=== PATIENT | male | born 1955 | race Hispanic/Latino ===

== ENCOUNTER 2018-08-05 16:44 | Inpatient (IN) | payer OTHER ==
[~2018-08-05] VITALS: Ht 170.2 cm; Wt 81.2 kg
[2018-08-05] MEDS ORDERED: MORPHINE SULFATE 2 MG/ML SYR IV NR ×2 (17:00→18:45)
[2018-08-05] MEDS ORDERED: ONDANSETRON HCL INJ 2 MG/ML VIAL IV NR (17:15)
[2018-08-05 17:31] LABS: CLARITY,URINE TURBID (CLEAR); COLOR,URINE RED (YELLOW); LEUKOCYTE ESTERASE ,URINE NEGATIVE (NEGATIVE)
[2018-08-05 17:32] LABS: KETONES,URINE TRACE (NEGATIVE); NITRITE,URINE POSITIVE (NEGATIVE); PROTEIN,URINE DIPSTICK 2+ (NEGATIVE)
[2018-08-05 17:35] LABS: BILIRUBIN,URINE 2+ (NEGATIVE); URINE UROBILINOGEN 4 mg/dL (0.2 - 1)
[2018-08-05 17:50] LABS: BASOPHILS # (AUTO) 0.1 (0.0-0.1); BASOPHILS % 0.4 % (0.0-1.0); HEMATOCRIT 43.8 % (38.2-49.6); HEMOGLOBIN 14.7 g/dL (14.0-18.0); LYMPHOCYTES # (AUTO) 0.8 (1.0-3.2); LYMPHOCYTES % 5.7 % (18.0-39.1); MEAN CORPUSCULAR HEMOGLOBIN 31.1 pg (28-32); MEAN CORPUSCULAR HGB CONC 33.6 g/dL (31-35); MEAN CORPUSCULAR VOLUME 92.8 fL (81-99); MONOCYTES # (AUTO) 0.5 (0.2-0.8); NEUTROPHILS # (AUTO) 11.9 (2.1-6.9); NEUTROPHILS % 89.6 % (38.7-80.0); PLATELET COUNT 242 x10e3/uL (140-360); RED BLOOD COUNT 4.72 x10e6/uL (4.3-5.7); RED CELL DISTRIBUTION WIDTH 13.1 % (11.7-14.4)
[2018-08-05 17:56] LABS: AMORPHOUS SEDIMENT,URINE FEW (FEW); BACTERIA,URINE MODERATE /HPF; EPITHELIAL CELLS,URINE FEW /LPF; RBC,URINE >50 /HPF (0-5); WBC,URINE (MAN) 0-5 /HPF (0-5)
[2018-08-05] MEDS ORDERED: CEFTRIAXONE SOD 1 GM VIAL IV NR (18:00)
[2018-08-05 18:04] LABS: ALANINE AMINOTRANSFERASE 19 IU/L (0-55); ALBUMIN 4.3 g/dL (3.5-5.0); ALBUMIN/GLOBULIN RATIO 1.4 (0.8-2.0); ALKALINE PHOSPHATASE 82 IU/L (40-150); ANION GAP 13.8 mmol/L (8-16); BLOOD UREA NITROGEN 13 mg/dL (7-26); BUN/CREATININE RATIO 11 (6-25); CALCIUM 9.6 mg/dL (8.4-10.2); CARBON DIOXIDE 25 mmol/L (22-29); CHLORIDE 104 mmol/L (98-107); CREATININE, SERUM 1.19 mg/dL (0.72-1.25); EST GLOMERULAR FILTRATION RATE > 60 ML/MIN (60-); GLUCOSE 169 mg/dL (74-118); POTASSIUM 3.8 mmol/L (3.5-5.1); SODIUM 139 mmol/L (136-145)
--- NOTE | 2018-08-05 18:28 | Diagnostic Imaging Report ---
EXAM: CT Abdomen and Pelvis WITHOUT contrast INDICATION: Flank pain, urinary frequency, fullness ^Stone Protocol ^[id number] ^1755 ^Y COMPARISON: None. TECHNIQUE: Abdomen and pelvis were scanned utilizing a multidetector helical scanner from the lung base to the pubic symphysis without administration of IV contrast. Absence of intravenous contrast decreases sensitivity for detection of focal lesions and vascular pathology. Coronal and sagittal reformations were obtained. Routine protocol was performed. IV CONTRAST: None ORAL CONTRAST: Water COMPLICATIONS: None RADIATION DOSE: Total DLP: 326.7 mGy*cm Estimated effective dose: (DLP x 0.015 x size factor) mSv CTDIvol has been reviewed. It is below the limits set by the Radiation Protocol Committee (RPC). Dose modulation, iterative reconstruction, and/or weight based adjustment of the mA/kV was utilized to reduce the radiation dose to as low as reasonably achievable. FINDINGS: LINES and TUBES: None. LOWER THORAX: Coronary artery calcifications. Mild bibasilar atelectasis. HEPATOBILIARY: Hepatic cysts measuring up to 2.4 cm. Smaller hypodensities are too small to characterize but likely represent cysts. No biliary ductal dilation. GALLBLADDER: No radio-opaque stones or sludge. No wall thickening. SPLEEN: No splenomegaly. PANCREAS: No focal masses or ductal dilatation. ADRENALS: No adrenal nodules KIDNEYS/URETERS: Mild right hydroureteronephrosis secondary to a 0.2 x 0.5 x 0.3 cm (SI x AP x TV) stone at the ureterovesicular junction. Associated perinephric and periureteral stranding. Punctate nonobstructing calculus in the left superior pole. No left hydronephrosis. GI TRACT: No abnormal distention, wall thickening, or evidence of bowel obstruction. There are diverticula within the colon without evidence of diverticulitis. Submucosal fat deposition in the ascending colon. Appendix is not clearly identified. There is however no fat stranding or adenopathy in the right lower quadrant to suggest appendicitis. PELVIC ORGANS/BLADDER: Unremarkable. LYMPH NODES: No lymphadenopathy. VESSELS: There is mild atherosclerotic disease in the aorta and major arterial branches. PERITONEUM / RETROPERITONEUM: No free air or fluid. BONES: There are degenerative changes in the lumbar spine. SOFT TISSUES: Fat-containing right inguinal hernia. IMPRESSION: 1. Mild right hydroureteronephrosis secondary to a 0.2 x 0.5 x 0.3 cm stone at the right ureterovesicular junction. 2. Left nephrolithiasis. No left hydronephrosis. 3. Colonic diverticulosis. Signed by: DR. Sandip Lozano MD on 08/05/2018 6:25 PM
--- OUTSIDE RECORDS SUMMARY | 2018-08-05 18:59 | XMS REPORT ---
Author Author [facility] Address Unknown Phone Unavailable Care Team Providers Care Tonnage Compilation Clerk Name Role Phone Doreen GASTON Unavailable Unavailable Problems This patient has no known problems. Allergies, Adverse Reactions, Alerts This patient has no known allergies or adverse reactions. Medications This patient has no known medications. Encounters Start Date/Time End Date/Time Encounter Type Admission Type Attending [facility] Care Department Encounter ID 2018-03-15 00:00:00 2018-03-15 00:00:00 Outpatient [facility] [id number] 2018-01-09 00:00:00 2018-01-09 00:00:00 Outpatient [facility] [id number] 2017-08-28 00:00:00 2017-08-28 00:00:00 Outpatient [facility] [id number] 2017-07-12 08:56:36 2017-07-12 08:56:36 Outpatient [facility] [id number] 2017-07-12 08:03:46 2017-07-12 08:03:46 Outpatient [facility] [id number] 2017-07-11 09:05:43 2017-07-11 09:05:43 Outpatient [facility] [id number] Results Test Description Test Time Test Comments Text Results Atomic Results Result Comments CT ABDOMEN/PELVIS WO 2018-08-05 18:17:00 [place] [address] Patient Name: LAI WALDRON MR #: [id number] : 1955 Age/Sex: 63/M Req #: [id number] Adm Physician: Ordered by: JOSUE GASTON MD Report #: [id number] Location: ER Room/Bed: Procedure: [id number] CT/CT ABDOMEN/PELVIS WO Exam Date: 08/05/18 Exam Time: 1755 REPORT STATUS: Signed EXAM: CT Abdomen and Pelvis WITHOUT contrast INDIC ATION: Flank pain, urinary frequency, fullness Stone Protocol [id number] 1755 Y COMPARISON: None. TECHNIQUE: Abdomen and pelvis were scanned utilizing a multidetector helical scanner from the lung base to the pubic symphysis without administration of IV contrast. Absence of intravenous contrast decreases sensitivity for detection of focal lesions and vascular pathology. Coronal and sagittal reformations were obtained. Routine protocol was performed. IV CONTRAST: None ORAL CONTRAST: Water COMPLICATIONS: None RADIATION DOSE: Total DLP: 326.7 mGy*cm Estimated effective dose: (DLP x 0.015 x size factor) mSv CTDIvol has been reviewed. It is below the limits set by the Radiation Protocol Committee (RPC). Dose modulation, iterative reconstruction, and/or weight based adjustment of the mA/kV was utilized to reduce the radiation dose to as low as reasonably achievable. FINDINGS: LINES and TUBES: None. LOWER THORAX: Coronary artery calcifications. Mild bibasilar atelectasis. HEPATOBILIARY: Hepatic cysts measuring up to 2.4 cm. Smaller hypodensities are too small to characterize but likely represent cysts. No biliary ductal dilation. GALLBLADDER: No radio-opaque stones or sludge. No wall thickening. SPLEEN: No splenomegaly. PANCREAS: No focal masses or ductal dilatation. ADRENALS: No adrenal nodules KIDNEYS/URETERS: Mild right hydroureteronephrosis secondary to a 0.2 x 0.5 x 0.3 cm (SI x AP x TV) stone at the ureterovesicular junction. Associated perinephric and periureteral stranding. Punctate nonobstructing calculus in the left superior pole. No left hydronephrosis. GI TRACT: No abnormal distention, wall thickening, or evidence of bowel obstruction. There are diverticula within the colon without evidence of diverticulitis. Submucosal fat deposition in the ascending colon. Appendix is not clearly identified. There is however no fat stranding or adenopathy in the right lower quadrant to suggest appendicitis. PELVIC ORGANS/BLADDER: Unremarkable. LYMPH NODES: No lymphadenopathy. VESSELS: There is mild atherosclerotic disease in the aorta and major arterial branches. PERITONEUM / RETROPERITONEUM: No free air or fluid. BONES: There are degenerative changes in the lumbar spine. SOFT TISSUES: Fat-containing right inguinal hernia. IMPRESSION: 1. Mild right hydroureteronephrosis secondary to a 0.2 x 0.5 x 0.3 cm stone at the right ureterovesicular junction. 2. Left nephr olithiasis. No left hydronephrosis. 3. Colonic diverticulosis. Signed by: DR. Sandip Laureano MD on 08/05/2018 6:25 PM Dictated By: SANDIP LAUREANO MD 24 Transcribed By: FARHAN on 08/05/181824 COPY TO: JOSUE GASTON MD
[2018-08-05] MEDS ORDERED: MORPHINE SULFATE 2 MG/ML SYR IV PRN (19:00)
[2018-08-05] MEDS ORDERED: ACETAMINOPHEN 325 MG TAB PO PRN (19:00)
[2018-08-05] MEDS ORDERED: IBUPROFEN 600 MG TAB PO PRN (19:00)
[2018-08-05] MEDS ORDERED: ONDANSETRON HCL INJ 2 MG/ML VIAL IV PRN (19:00)
[2018-08-05] MEDS ORDERED: DEXTROSE 50% SYRINGE 50 ML IV PRN (19:00)
[2018-08-05] MEDS ORDERED: CEFTRIAXONE SOD 1 GM VIAL IV SCH (19:15)
[2018-08-05] MEDS ORDERED: KETOROLAC TROMETHAMINE 30 MG/ML VIAL IV NR (19:30)
[2018-08-05 20:00] VITALS: BP 108/68
[2018-08-05 20:36] VITALS: BP 138/62
[2018-08-05 21:00] VITALS: BP 138/62
[2018-08-05] MEDS: INSULIN REGULAR, HUMAN 100 UNIT/1 ML 3ML VIAL SQ SCH (21:00)
[2018-08-05] MEDS: SODIUM CHLORIDE 0.9% 1000ML 1,000 ML IV SCH (21:47)
[2018-08-06] VITALS (7 sets, daily range): BP systolic 110–136; BP diastolic 57–73
[2018-08-06] MEDS: SODIUM CHLORIDE 0.9% 1000ML 1,000 ML IV SCH ×3 (02:46→23:43)
[2018-08-06] MEDS: INSULIN REGULAR, HUMAN 100 UNIT/1 ML 3ML VIAL SQ SCH ×4 (07:30→20:44)
[2018-08-06] MEDS ORDERED: ATORVASTATIN CA20 MG PO (07:35)
[2018-08-06] MEDS ORDERED: METOPROLOL SUCC50 MG PO (07:35)
[2018-08-06] MEDS: ATORVASTATIN 20 MG TAB PO SCH (09:10)
[2018-08-06] MEDS: METOPROLOL SUCCINATE 50 MG TAB XL PO SCH (09:10)
[2018-08-06] MEDS: CEFTRIAXONE SOD 1 GM VIAL IV SCH (17:20)
[2018-08-06] MEDS ORDERED: CEFTRIAXONE SOD 1 GM VIAL IV SCH ×2 (19:30)
--- NOTE | 2018-08-06 21:35 | Consultation ---
DATE OF CONSULTATION: August 06, 2018 UROLOGY CONSULTATION REASON FOR CONSULTATION: Kidney stones. HISTORY OF PRESENT ILLNESS: Mr. Wilks is a 63-year-old male, who is in normal state of health with acute, sharp, severe, right-sided flank pain while in the hospital. He denied fevers. No chills. Denied nausea and vomiting. PAST MEDICAL HISTORY: Hypertension, appendectomy. MEDICATIONS: Metoprolol, lovastatin. ALLERGIES: NKDA. SOCIAL HISTORY: Denied smoking or drinking. FAMILY HISTORY: Denied urologic stones or malignancies. REVIEW OF SYSTEMS: Noncontributory other than problems mentioned above for 12 organ systems. PHYSICAL EXAMINATION GENERAL: Elderly male. No acute distress. VITALS: Temperature currently he is afebrile. Blood pressure 203/104. Pulse 61. Respirations 16. HEENT: The sclerae are anicteric. NECK: Supple. BACK: Without costovertebral angle tenderness bilaterally. ABDOMEN: Soft, nontender, nondistended. There is no palpable mass. No palpable hernias. No palpable inguinal adenopathy. : Normal male external genitalia. EXTREMITIES: No edema. PSYCH: Alert, mood appropriate. SKIN: Intact. Normal color. PERTINENT LABORATORY DATA: CT scan revealing a 2- x 3- x 5-mm right UPJ stone right hydronephrosis, left lower pole punctate stone, liver cysts. Hemoglobin 14, hematocrit 43, platelet count 242,000, white cell count 13,240. Sodium 139, potassium 3.0, chloride 104, bicarb 25, BUN 30, creatinine 1.19, glucose 169. Urinalysis greater 50 reds, 0 to 5 whites, 4+ bilirubin, 2+ glucose, 2+ protein. IMPRESSIONS 1. Right renal calculus. 2. Right hydronephrosis. 3. Microscopic hematuria. 4. Left renal calculus. 5. Proteinuria. 6. Glycosuria. PLAN: Will employ a brief trial of passage. Should this fail, patient will need stenting. Thank you for allowing us to participate in care of your patient. Will be happy to follow him along with you. Job#: [id number]
[2018-08-07] VITALS (7 sets, daily range): BP systolic 115–155; BP diastolic 60–83
[2018-08-07 04:32] LABS: BASOPHILS # (AUTO) 0.1 (0.0-0.1); BASOPHILS % 0.5 % (0.0-1.0); EOSINOPHILS # (AUTO) 0.2 (0.0-0.4); EOSINOPHILS % 1.7 % (0.0-6.0); HEMATOCRIT 37.1 % (38.2-49.6); HEMOGLOBIN 12.4 g/dL (14.0-18.0); LYMPHOCYTES # (AUTO) 2.3 (1.0-3.2); LYMPHOCYTES % 22.9 % (18.0-39.1); MEAN CORPUSCULAR HEMOGLOBIN 31.2 pg (28-32); MEAN CORPUSCULAR HGB CONC 33.4 g/dL (31-35); MEAN CORPUSCULAR VOLUME 93.2 fL (81-99); MONOCYTES % 9.6 % (4.4-11.3); NEUTROPHILS # (AUTO) 6.5 (2.1-6.9); PLATELET COUNT 191 x10e3/uL (140-360); RED BLOOD COUNT 3.98 x10e6/uL (4.3-5.7); RED CELL DISTRIBUTION WIDTH 13.2 % (11.7-14.4)
[2018-08-07 04:58] LABS: ALANINE AMINOTRANSFERASE 12 IU/L (0-55); ALBUMIN/GLOBULIN RATIO 1.2 (0.8-2.0); ALKALINE PHOSPHATASE 61 IU/L (40-150); ANION GAP 12.5 mmol/L (8-16); BLOOD UREA NITROGEN 16 mg/dL (7-26); BUN/CREATININE RATIO 17 (6-25); CALCIUM 8.5 mg/dL (8.4-10.2); CARBON DIOXIDE 23 mmol/L (22-29); CHLORIDE 110 mmol/L (98-107); CREATININE, SERUM 0.96 mg/dL (0.72-1.25); EST GLOMERULAR FILTRATION RATE > 60 ML/MIN (60-); GLUCOSE 92 mg/dL (74-118); POTASSIUM 3.5 mmol/L (3.5-5.1); SODIUM 142 mmol/L (136-145)
[2018-08-07 06:24] LABS: CHOL/HDL RATIO 2.9 (3.9-4.7)
--- NOTE | 2018-08-07 06:27 | History and Physical ---
PRIMARY CARE PHYSICIAN: Dr. Oleary CHIEF COMPLAINT: Right flank pain. HISTORY OF PRESENT ILLNESS: This is a 63-year-old man with a history of coronary artery disease, now developing right flank pain for the past 2 days. No fever or chills. No sweats. Did have some nausea and vomiting, but no diarrhea. Admitted for further evaluation and management. PAST MEDICAL HISTORY: Coronary artery disease, status post stent times 2 in 2015 and hypertension. PAST SURGICAL HISTORY: Coronary stent placement and appendectomy. ALLERGIES: PER ELECTRONIC MEDICAL RECORD. FAMILY HISTORY/SOCIAL HISTORY: Patient is and has 3 children. No alcohol or illicits. He works as a operations welder. MEDICATIONS: Per electronic medical record. REVIEW OF SYSTEMS: Denies any dizziness or chest pain. Denies any fever, chills, sweats. Denies any headache, vision changes or leg pain. PHYSICAL EXAMINATION VITAL SIGNS: Have been reviewed. GENERAL: A tired-appearing man resting in bed. HEENT: Anicteric. Pupils respond to light. No oral lesions. CARDIOVASCULAR: Normal S1 and S2. LUNGS: Moderate breath sounds. ABDOMEN: Soft, nontender and nondistended. His right flank is mildly tender to percussion. EXTREMITIES: No edema. SKIN: Dry. PSYCHIATRIC: Normal affect. NEUROLOGICAL: Alert and oriented times 3. Moving all extremities. LABS: Reviewed. MEDICATIONS: Reviewed. ASSESSMENT: A 63-year-old man with: 1. Right pyelonephritis. 2. Right hydroureteronephrosis. 3. Nephrolithiasis. 4. Urinary tract infection. 5. Hyperglycemia. 6. Hyperlipidemia. 7. Hypertension. PLAN 1. IV antibiotics and IV fluids. 2. Urology consultation. 3. Follow up cultures. 4. Continue IV ceftriaxone. 5. Continue statin medications and check lipid panel. 6. Screen for diabetes. 7. Prophylaxis with SCD. 8. Disposition. I have discussed with the patient and family at bedside. Job#: [id number] OR
[2018-08-07] MEDS: METOPROLOL SUCCINATE 50 MG TAB XL PO SCH (08:48)
[2018-08-07] MEDS: SODIUM CHLORIDE 0.9% 1000ML 1,000 ML IV SCH ×3 (08:48→20:27)
[2018-08-07] MEDS: ATORVASTATIN 20 MG TAB PO SCH (08:48)
--- NOTE | 2018-08-07 13:07 | Diagnostic Imaging Report ---
PROCEDURE:X-RAY ABDOMEN - KUB COMPARISON:CT scan of the abdomen and pelvis dated 08/05/2018 INDICATIONS:KIDNEY STONES FINDINGS: Faint calcification overlying the expected right ureterovesical junction likely represents a previously described stone in the distal right ureter from the recent CT. Calcification overlying the medial aspect of the left kidney is indeterminate. There are no dilated loops of bowel to suggest obstruction. There are no masses. There is no evidence of free air. No acute osseous abnormalities are present. CONCLUSION: 1. No acute abdominal abnormality. 2. Calcification persistent at the expected course of the right UVJ. Yusuf Mackey D.O. Dictated by: Yusuf Mackey D.O. on 08/07/2018 at 13:16 Electronically approved by: Yusuf Mackey D.O. on 08/07/2018 at 13:16
[2018-08-07] MEDS: CEFTRIAXONE SOD 1 GM VIAL IV SCH (16:30)
[2018-08-08] VITALS: BP 153/84
[2018-08-08 04:00] VITALS: BP 133/81
[2018-08-08 04:39] LABS: BASOPHILS # (AUTO) 0.1 (0.0-0.1); BASOPHILS % 0.9 % (0.0-1.0); EOSINOPHILS # (AUTO) 0.2 (0.0-0.4); EOSINOPHILS % 2.2 % (0.0-6.0); HEMATOCRIT 37.3 % (38.2-49.6); HEMOGLOBIN 12.7 g/dL (14.0-18.0); LYMPHOCYTES # (AUTO) 2.7 (1.0-3.2); LYMPHOCYTES % 33.4 % (18.0-39.1); MEAN CORPUSCULAR HEMOGLOBIN 31.4 pg (28-32); MEAN CORPUSCULAR VOLUME 92.1 fL (81-99); MONOCYTES # (AUTO) 0.8 (0.2-0.8); MONOCYTES % 9.6 % (4.4-11.3); NEUTROPHILS # (AUTO) 4.3 (2.1-6.9); NEUTROPHILS % 53.7 % (38.7-80.0); PLATELET COUNT 200 x10e3/uL (140-360); RED BLOOD COUNT 4.05 x10e6/uL (4.3-5.7); RED CELL DISTRIBUTION WIDTH 13.1 % (11.7-14.4)
[2018-08-08 04:58] LABS: ANION GAP 13.3 mmol/L (8-16); BLOOD UREA NITROGEN 11 mg/dL (7-26); BUN/CREATININE RATIO 15 (6-25); CALCIUM 8.9 mg/dL (8.4-10.2); CARBON DIOXIDE 23 mmol/L (22-29); CHLORIDE 107 mmol/L (98-107); CREATININE, SERUM 0.75 mg/dL (0.72-1.25); EST GLOMERULAR FILTRATION RATE > 60 ML/MIN (60-); GLUCOSE 89 mg/dL (74-118); POTASSIUM 3.3 mmol/L (3.5-5.1); SODIUM 140 mmol/L (136-145)
[2018-08-08] MEDS: SODIUM CHLORIDE 0.9% 1000ML 1,000 ML IV SCH ×2 (05:36→10:46)
[2018-08-08] MEDS ORDERED: MORPHINE SULFATE INJ 4 MG/ML INJ IV PRN (06:45)
[2018-08-08] MEDS ORDERED: POTASSIUM CHLORIDE 20 MEQ TAB CR PO ONE (06:55)
[2018-08-08 07:51] VITALS: BP 133/81
[2018-08-08] MEDS ORDERED: POTASSIUM CHLORIDE 20MEQ/100ML 100 ML IV ONE (08:00)
[2018-08-08 08:45] VITALS: BP 139/83
[2018-08-08] MEDS: METOPROLOL SUCCINATE 50 MG TAB XL PO SCH (08:57)
[2018-08-08] MEDS: ATORVASTATIN 20 MG TAB PO SCH (08:57)
[2018-08-08 11:32] VITALS: BP 126/84
[2018-08-08] MEDS ORDERED: BELLADONNA/OPIUM 60 MG SUPP PR ONE (12:32)
[2018-08-08] MEDS ORDERED: IOPAMIDOL 610MG/1ML 300 MG/ML VIAL IV ONE (12:32)
[2018-08-08] MEDS ORDERED: TAMSULOSIN HCL 0.4 MG CAP PO SCH (13:30)
[2018-08-08] MEDS ORDERED: ACETAMINOPHEN/CODEINE 300MG - 30MG TAB PO PRN (13:30)
[2018-08-08 16:32] VITALS: BP 147/70
[2018-08-08] MEDS ORDERED: OXYBUTYNIN CHLORIDE 5 MG TAB PO SCH (17:00)
[2018-08-08] MEDS ORDERED: PHENAZOPYRIDINE HCL 100 MG TAB PO SCH (18:00)
[2018-08-08] MEDS ORDERED: TYLENOL # 31 EA (18:33)
[2018-08-08] MEDS ORDERED: DITROPAN XL5 MG PO (18:33)
[2018-08-08] MEDS ORDERED: FLOMAX0.4 MG PO (18:34)
[2018-08-08] MEDS ORDERED: CEFUROXIME500 MG (18:34)
[2018-08-08] MEDS ORDERED: FENTANYL CITRATE/PF 100MCG/2 ML INJ ONE (19:18)
[2018-08-08] MEDS ORDERED: MIDAZOLAM HCL 2 MG/2 ML VIAL ONE (19:18)
[2018-08-08] MEDS ORDERED: LIDOCAINE HCL 2% LOCAL INJ 5 ML SDV VIAL INJ ONE (19:18)
[2018-08-08] MEDS ORDERED: DEXAMETHASONE SOD PHOS INJ 4 MG/ML VIAL ONE (19:18)
[2018-08-08] MEDS ORDERED: SEVOFLURANE INHAL SOLN 250 ML PEN BTL ONE (19:18)
[2018-08-08] MEDS ORDERED: ONDANSETRON HCL INJ 2 MG/ML VIAL ONE (19:18)
[2018-08-08] MEDS ORDERED: PROPOFOL IV EMULSION 10 MG/ML 20 ML VIAL ONE (19:18)
--- NOTE | 2018-09-10 05:53 | Operative Report ---
DATE OF PROCEDURE: August 08, 2018 PREOPERATIVE DIAGNOSES 1. Right ureteral stone. 2. Right hydronephrosis due to stone. 3. Microhematuria. POSTOPERATIVE DIAGNOSES 1. Right ureteral stone. 2. Right hydronephrosis due to stone. 3. Microhematuria. OPERATIONS PERFORMED 1. Cystourethroscopy with bilateral ureteral catheterization and retrograde ureteropyelography (separate procedure performed for the microhematuria). 2. Interpretation of retrograde ureteropyelography. 3. Right ureteroscopy (separate procedure performed for the ureterolithiasis). 4. Right radiological services for supervision and interpretation of ureteroscopy. 5. Cystourethroscopy with insertion of right indwelling ureteral stent (separate procedure performed for the hydronephrosis). ANESTHESIA: General. COMPLICATIONS: None. CLINICAL SUMMARY: Please refer to consultation during this hospitalization, as well as documentation in the chart. OPERATIVE PROCEDURE IN DETAIL: Informed consent was verified. Maty Wilks was properly identified and taken to the operating room and placed on the cystoscopy table in the supine position. Anesthesia was uneventfully begun. The patient was then carefully and gently repositioned in the dorsal lithotomy position with all pressure points well-padded. His genitalia were prepared and draped in the usual sterile fashion. A 22.5-Eritrean cystoscope sheath with visual obturator in place was atraumatically inserted into the patient's urethra. It was guided down an unremarkable urethra through the normal sphincteric region, through the prostate bed, which was significant for trilobar prostatic hypertrophy with kissing lateral lobes and an prominent intravesical median lobe. Panendoscopy revealed grade 2 trabeculations, but no tumors. No stones and no diverticula. Normally positioned and configured ureteral orifices were identified. An 8-Eritrean catheter was used to cannulate each ureter and retrograde ureteropyelographies were performed. A guidewire was then placed into the right ureter and guided to the level to the patient's kidney. Semi-rigid ureteroscope was then placed alongside the guidewire and guided into the distal ureter. We could not identify any stone at this time. With cystoscopic and fluoroscopic guidance, a right-sided indwelling ureteral stent was then placed. It was coiled in the patient's kidneys, as well as in the patient's bladder. The retaining suture was cut short. Interpretation of retrograde ureteropyelography. Contrast was instilled in a retrograde fashion bilaterally. The left side was unremarkable. There were no tumors. No stones and no diverticula. Unobstructed drainage was observed. I could not visualize the punctate left-sided stone noted on CT. On the right side, there was hydroureteronephrosis compared to the left side. I could not visualize a filling defect that corresponds to the stone on CT. The stent was in good position, coiled in the patient's kidney, as well as the patient's bladder at the end of the case. The patient's bladder was drained. Cystoscope was withdrawn. Digital rectal examination revealed a 40 g prostate, smooth, nonfluctuant and without any nodules. Patient was then uneventfully reversed from anesthesia and taken to the recovery room in stable condition. Explicit postoperative instructions were given. I prescribed Flomax in addition to p.r.n. medications. Will plan to return the patient to the operating room for removal of the stents and perform a right ureteroscopy and manage any stone should we be able to find it. Job#: [id number] DINO
== END 2018-08-08 18:51 | disposition home or self-care (01) | DRG 661 ==
LOC: ER 16:44 → ERHOLD 18:57 → MED/SURG2 19:58
PROVIDERS: ADMIT Internal Medicine; ATTEND Internal Medicine
PROC: BT141ZZ Fluoroscopy of Kidneys, Ureters and Bladder using Low Osmolar Contrast (ICD-10-PCS; 2018-08-08)
PROC: 0T768DZ Dilation of Right Ureter with Intraluminal Device, Via Natural or Artificial Opening Endoscopic (ICD-10-PCS; principal; 2018-08-08 13:30)
DX: N13.6 Pyonephrosis (principal); I10 Essential (primary) hypertension; Z82.49 Family history of ischemic heart disease and other diseases of the circulatory system; I25.10 Atherosclerotic heart disease of native coronary artery without angina pectoris; Z95.5 Presence of coronary angioplasty implant and graft; R73.9 Hyperglycemia, unspecified; E78.5 Hyperlipidemia, unspecified; R80.9 Proteinuria, unspecified; R81 Glycosuria; D64.9 Anemia, unspecified; R31.29 Other microscopic hematuria
CPT/HCPCS: 36415; 74018; 74176; 74420; 80048; 80053; 80061; 81001; 82948; 83036; 83605; 83970; 84550; 85025; 87040; 87086; 93005; 99284; C2617; J0696; J1100; J1885; J2001; J2250; J2270; J2405; J3480; J7030

== ENCOUNTER → 2018-09-05 | Day surgery (SDC) | payer OTHER ==
[2018-09-03 09:19] LABS: BASOPHILS # (AUTO) 0.1 (0.0-0.1); EOSINOPHILS # (AUTO) 0.2 (0.0-0.4); HEMATOCRIT 44.9 % (38.2-49.6); LYMPHOCYTES # (AUTO) 2.1 (1.0-3.2); LYMPHOCYTES % 26.4 % (18.0-39.1); MEAN CORPUSCULAR HEMOGLOBIN 31.1 pg (28-32); MEAN CORPUSCULAR HGB CONC 33.4 g/dL (31-35); MONOCYTES # (AUTO) 0.8 (0.2-0.8); MONOCYTES % 9.5 % (4.4-11.3); NEUTROPHILS # (AUTO) 4.8 (2.1-6.9); PLATELET COUNT 215 x10e3/uL (140-360); RED BLOOD COUNT 4.83 x10e6/uL (4.3-5.7)
--- NOTE | 2018-09-03 09:41 | Diagnostic Imaging Report ---
PROCEDURE: X-RAY CHEST, TWO VIEWS COMPARISON: None. INDICATIONS: PRE-OPERATIVE CHEST X-RAY FOR CYSTOSCOPY FINDINGS: Lungs well-inflated and without focal consolidation, pleural effusion, or pneumothorax. Posterior convexity at the level of the mid thoracic spine seen only on the lateral radiograph may represent summation of shadows. Otherwise cardiomediastinal contour and pulmonary vasculature are within normal limits. No acute osseous abnormality. Ureteral stent is partially visualized projecting over the upper lumbar vertebral column on the lateral radiograph. CONCLUSION: No acute cardiopulmonary abnormality. Posterior convexity projecting over the mid thoracic spine on the lateral radiograph may reflect summation of vascular and soft tissue structures. However, CT scan of the chest with contrast is suggested to exclude presence of a posterior mediastinal mass. Dictated by: Lit Underwood M.D. on 09/03/2018 at 9:51 Electronically approved by: Lit Underwood M.D. on 09/03/2018 at 9:51
[~2018-09-05] MED LIST: ACETAMINOPHEN 1000 MG/100 ML 100 ML IV ONE; ATORVASTATIN CA20 MG PO; BELLADONNA/OPIUM 60 MG SUPP PR ONE; CEFTRIAXONE SOD 1 GM VIAL ONE; CEFUROXIME500 MG; DEXAMETHASONE SOD PHOS INJ 4 MG/ML VIAL ONE; DITROPAN XL5 MG PO; FENTANYL CITRATE/PF 100MCG/2 ML INJ ONE; FLOMAX0.4 MG PO; IOPAMIDOL 610MG/1ML 300 MG/ML VIAL IV ONE; LIDOCAINE HCL 2% LOCAL INJ 5 ML SDV VIAL INJ ONE; METOPROLOL SUCC50 MG PO; MIDAZOLAM HCL 2 MG/2 ML VIAL ONE; ONDANSETRON HCL INJ 2 MG/ML VIAL ONE; PROPOFOL IV EMULSION 10 MG/ML 20 ML VIAL ONE; SEVOFLURANE INHAL SOLN 250 ML PEN BTL ONE; TYLENOL # 31 EA
--- NOTE | 2018-09-05 09:58 | Diagnostic Imaging Report ---
PROCEDURE:X-RAY ABDOMEN - KUB COMPARISON:CT scan of the abdomen and pelvis dated 08/05/2019 INDICATIONS:PREOPERATIVE XRAY FOR KIDNEY STONE/STENT SURGERY FINDINGS: There is a right double-J ureteral stent present. No stones along the course of the stent. There are no dilated loops of bowel to suggest obstruction. There are no masses. There is no evidence of free air. No acute osseous abnormalities are present. Mild degenerative changes of the spine. CONCLUSION: No acute abdominal abnormality. Yusuf Mackey D.O. Dictated by: Yusuf Mackey D.O. on 09/05/2018 at 10:07 Electronically approved by: Yusuf Mackey D.O. on 09/05/2018 at 10:07
[2018-09-05 13:00] VITALS: BP 118/72
--- NOTE | 2018-09-05 19:37 | Operative Report ---
DATE OF PROCEDURE: September 05, 2018 PREOPERATIVE DIAGNOSES: 1. Right urolithiasis. 2. Right indwelling ureteral stent. POSTOPERATIVE DIAGNOSES: 1. Right nephrolithiasis. 2. Right indwelling ureteral stent. 3. Severely obstructive trilobar benign prostatic hypertrophy with a large intravesical median lobe. OPERATIONS PERFORMED: 1. Cystourethroscopy with complicated removal of right indwelling ureteral stent (separate procedure performed for the diagnosis of stent done with separate scope). 2. Right ureteroscopy with stone manipulation and extraction (separate procedure performed for the right nephrolithiasis). 3. Radiological services for supervision and interpretation of ureteroscopy. 4. Interpretation of retrograde ureteropyelography. 5. Supervision of fluoroscopy, no radiologist present. ANESTHESIA: General. COMPLICATIONS: None. CLINICAL SUMMARY: Maty Wilks is a 63-year-old man who had an obstructing ureteral stone. The patient underwent ureteral stenting and ureteroscopy. We were unable to locate the ureteral stone at that time. The patient has failed to pass his stone in the meantime. He is brought to the operating room to remove his stent and evaluate and manage any stone. He is aware of the risks of bleeding, infection, injury to adjacent structures, need for additional procedures, and elected to proceed. The patient has been on Flomax for the BPH that was diagnosed at his last hospitalization. OPERATIVE PROCEDURE IN DETAIL: Informed consent was verified. Maty Wilks was properly identified, taken to the operating room, and placed on the cystoscopy table in the supine position. Anesthesia was uneventfully begun. The patient was then carefully and gently repositioned in the dorsal lithotomy position with all pressure points well padded. His genitalia were prepared and draped in usual sterile fashion. The cystourethroscope sheath with the visual obturator in place was atraumatically inserted into the patient's urethra. It was guided down the unremarkable distal urethra, through some wide caliber non-obstructing, non-clinically significant urethral strictures, through the prostate bed, which was significant for trilobar prostatic hypertrophy with kissing lateral lobes that are obstructing and a large bivalving intravesical median lobe. We entered the patient's bladder, which exhibited trabeculations. There were no tumors, there were no stones. There was a stent emerging from the right ureteral orifice. The stent was then grasped, pulled out through the urethral meatus where a guidewire was then placed through the stent and guided to the level of the patient's kidney. The stent was then re-grasped, completely removed, and discarded. Semirigid ureteroscope was then placed alongside the guidewire and guided down the urethra through the prostate bed and up into the distal right ureter where no stone was found. Flexible ureteroscope was then brought up over the guidewire and guided to the level of the patient's kidney. Panendoscopy of the intrarenal collecting system revealed Rafat's plaques, but there were no tumors noted, there were no suspicious lesions. We identified a stone in the renal pelvis. I presumed this is the stone that was previously present in the ureter that must have floated retrograde upon insertion of the guidewire or the ureteroscope irrigation at the last surgery. Nevertheless, there were no other stones noted. That stone was grasped with a nitinol tipless basket and atraumatically extracted thus examining the ureter thoroughly, which revealed no additional stones. The cystoscope was reintroduced. Cystoscopy was carefully performed. It revealed findings similar to above. The patient's ureteral orifices were difficult to access due to the fact that they are behind this bivalving obstructing median lobe that is intravesical. A belladonna and opium suppository was placed revealing a 40 g prostate, smooth, non-fluctuant, and without any nodules. The patient was then uneventfully reversed from anesthesia and taken to the recovery room in stable condition. There were no complications to the procedure. He tolerated the procedure well. PLAN: 1. We will follow the patient up in the office to perform uroflowmetry and bladder ultrasonography. 2. I will order a chest CT on the patient in order to evaluate the abnormality noted on preoperative chest x-ray. 3. I have prescribed the patient additional Flomax to manage his obstructive BPH. Job#: [id number] cc:LORENZO HUDSON MD
== END | disposition home or self-care (01) ==
LOC: OR 07:54
PROVIDERS: ATTEND Urology
DX: N20.0 Calculus of kidney (principal); Z46.6 Encounter for fitting and adjustment of urinary device; N40.1 Benign prostatic hyperplasia with lower urinary tract symptoms; N13.8 Other obstructive and reflux uropathy; N39.0 Urinary tract infection, site not specified; N32.89 Other specified disorders of bladder; N28.89 Other specified disorders of kidney and ureter; R91.8 Other nonspecific abnormal finding of lung field; I25.2 Old myocardial infarction; I10 Essential (primary) hypertension; K21.9 Gastro-esophageal reflux disease without esophagitis; Z01.810 Encounter for preprocedural cardiovascular examination; Z01.812 Encounter for preprocedural laboratory examination; Z01.818 Encounter for other preprocedural examination; Z95.5 Presence of coronary angioplasty implant and graft
CPT/HCPCS: 36415; 52352; 71046; 74420; 85025; 88300; 93005; C1758; J0131; J0696; J1100; J2001; J2250; J2405; J2704; Q9967; 74018

== ENCOUNTER → 2018-09-27 | Outpatient (CLI) | payer OTHER ==
[~2018-09-27] MED LIST changes: -ACETAMINOPHEN 1000 MG/100 ML 100 ML IV ONE; -BELLADONNA/OPIUM 60 MG SUPP PR ONE; -CEFTRIAXONE SOD 1 GM VIAL ONE; -DEXAMETHASONE SOD PHOS INJ 4 MG/ML VIAL ONE; -FENTANYL CITRATE/PF 100MCG/2 ML INJ ONE; -IOPAMIDOL 610MG/1ML 300 MG/ML VIAL IV ONE; -LIDOCAINE HCL 2% LOCAL INJ 5 ML SDV VIAL INJ ONE; -MIDAZOLAM HCL 2 MG/2 ML VIAL ONE; -ONDANSETRON HCL INJ 2 MG/ML VIAL ONE; -PROPOFOL IV EMULSION 10 MG/ML 20 ML VIAL ONE; -SEVOFLURANE INHAL SOLN 250 ML PEN BTL ONE
[2018-09-27 08:14] LABS: BLOOD UREA NITROGEN 7 mg/dL (7-26); BUN/CREATININE RATIO 8 (6-25); CREATININE, SERUM 0.87 mg/dL (0.72-1.25); EST GLOMERULAR FILTRATION RATE > 60 ML/MIN (60-)
--- NOTE | 2018-09-27 11:18 | Diagnostic Imaging Report ---
PROCEDURE: CT scan of the chest WITH intravenous contrast, using standard protocol. TECHNIQUE: The chest was scanned utilizing a multidetector helical scanner from the lung apex through the level of the adrenal glands after the IV administration of 100 cc of Isovue 370. Coronal and sagittal multiplanar reformations were obtained. Active dose reduction parameters were utilized. DLP: 506.28 mGy-cm COMPARISON: [facility], , CHEST 2 VIEWS, 09/03/2018, 9:05. INDICATIONS: Abnormal chest x-ray FINDINGS: Lines/tubes: None. Lungs and Airways: Several small subpleural blebs on the right. No pulmonary nodules or masses. There is no consolidation. Pleura: The pleural spaces are clear. Heart and mediastinum: The thyroid gland is normal. No significant mediastinal, hilar or axillary lymphadenopathy is seen. The heart and pericardium are within normal limits. There is coronary artery calcification. No mediastinal mass. Soft tissues: Normal. Abdomen: Limited contrast-enhanced views of the upper abdomen show no abnormality within the visualized liver, spleen, pancreas, or kidneys. Benign appearing hepatic cysts. The adrenal glands are normal. Bones: Degenerative changes of the spine. IMPRESSION: No significant abnormality identified. Yusuf Mackey D.O. Dictated by: Yusuf Mackey D.O. on 09/27/2018 at 10:18 Electronically approved by: Yusuf Mackey D.O. on 09/27/2018 at 11:29
== END ==
LOC: CT 06:56
PROVIDERS: ATTEND Urology
DX: R91.8 Other nonspecific abnormal finding of lung field (principal)
CPT/HCPCS: 36415; 71260; 82565; 84520